=== PATIENT | female | born 1965 | race Caucasian/White ===

== ENCOUNTER 2020-10-14 15:38 | Emergency (ER) | payer OTHER, SELFPAY ==
[2020-10-14] VITALS (11 sets, daily range): BP systolic 150–167; BP diastolic 79–108; PULSE 77–116; RESP 16–27; TEMP 35.9–36.9; O2SAT 99–100
--- NOTE | ~2020-10-14 | US_ITS ---
EXAMINATION: US right upper quadrant EXAM DATE: 10/14/2020 16:56 INDICATION: Right upper quadrant pain. Clinical concern for cholecystitis. TECHNIQUE: Multiple grayscale and Doppler images of the abdomen right upper quadrant were obtained (b y a technologist who performed the scan) and subsequently reviewed. There is no prior study for dominguez guadalupe. FINDINGS: The pancreatic head and body are normal in appearance. The pancreatic tail is not visualized. The l iver has normal echogenicity and contour. There are no focal liver lesions identified. There is no evidence of intrahepatic biliary duct dilation. Portal venous flow was seen in the hepatopedal, nor mal direction and has normal Doppler waveform. No right-sided hydronephrosis. Common bile duct measures 3 mm, which is normal. The gallbladder wall is normal in thickness, with ex pected amount of distention. No sonographic evidence of pericholecystic fluid. There is cholelithia sis. Technologist performing exam reports patient did not demonstrate sonographic Benz's sign. P kayleigh note that this sign is less reliable in patients who have received pain medication. IMPRESSION: Cholelithiasis. Reviewed, dictated and finalized at location A. IMPRESSION: Cholelithiasis.
[2020-10-14 16:11] LABS: Basophils Percent Auto 0.2 % (0.2-1.2); Eosinophils Absolute Auto 0.1 K/mm3 (0-0.3); Eosinophils Percent Auto 0.4 % (0-4.4); Hematocrit 39.2 % (37.0-47.0); Hemoglobin 13.9 g/dL (12.0-15.0); Immature Granulocyte Absolute 0.04 K/mm3 (0.00-0.031); Immature Granulocyte Percent A 0.3 % (0-0.5); Lymphocytes Absolute Auto 1.06 K/mm3 (0.9-3.2); Lymphocytes Percent Auto 8.6 % (18.3-44.2); Mean Corpuscular HGB Conc 35.5 g/dl (32-36); Mean Corpuscular Volume 90.3 fl (80-100); Mean Platelet Volume 9.9 fl (7.4-10.4); Monocytes Absolute Auto 1.4 K/mm3 (0.1-0.6); Monocytes Percent Auto 11.1 % (2.6-8.5); Neutrophils Absolute Auto 9.8 K/mm3 (1.3-6.7); Neutrophils Percent Auto 79.4 % (45.5-73.1); Platelet Count Result 241 k/mm3 (150-375); Red Blood Count 4.34 M/mm3 (4.2-5.4); Red Cell Distribution Width 12.3 % (11.5-14.5); White Blood Count 12.3 K/mm3 (4.5-10.0)
[2020-10-14 16:15] LABS: Add Urine Microscopic? YES; Appearance Urine Clear (Clear); Bilirubin Urine Negative (Negative); Blood Urine 1+ (Negative); Color Urine Yellow (Yellow); Glucose Urine UA Negative (Negative); Ketones Urine Negative (Negative); Leukocyte Esterase Ur Trace LEU/UL (Negative); Mucus Urine Rare /lpf; Nitrate Urine Negative (Negative); Protein Urine 1+ mg/dL (Negative); Specific Grav Ur 1.013 (1.001-1.035); Squamous Epithelial Cell Urine Occasional /hpf (Few); Urobilinogen Urine Negative mg/dL (<2.0); WBC Urine 0-3 /hpf
[2020-10-14 16:24] LABS: Alanine Aminotransferase 159 U/L (4-35); Albumin Level 4.3 g/dL (3.5-5.1); Alkaline Phosphatase 300 U/L (38-126); Anion Gap 10 mmol/L (8-16); Aspartate Amino Transferase 70 U/L (14-36); Bilirubin,Total 1.2 mg/dL (0.2-1.3); Blood Urea Nitrogen 12 mg/dL (7-17); Calcium 9.3 mg/dL (8.4-10.2); Carbon Dioxide 28 mmol/L (22-30); Chloride 94 mmol/L (98-107); Estimated CRCL calculation 77 ml/min; Estimated Glomerular Filt Rate > 60; Glucose 117 mg/dL (65-105); Lipase 58 U/L (23-300); Potassium 3.9 mmol/L (3.4-5.0); Sodium 132 mmol/L (137-145)
--- NOTE | 2020-10-14 17:28 | ED.GENADULT ---
HPI - General Adult General Chief complaint: Abdominal Pain Stated complaint: abd pain Time Seen by Provider: 10/14/20 15:56 History of Present Illness HPI narrative: Patient is a 55-year-old female who presents ER with upper abdominal pain. Symptoms began 4 days ago. The next day patient called her PCP and was placed on Zofran and omeprazole for reflux symptoms. Reflux improved however she persistently had right upper quadrant pain without radiation as aching. Unknown aggravating or alleviating factors. Does not feel associated with eating. PCP arrange an outpatient CT scan yesterday that showed gallbladder wall thickening and concern for cholecystitis. Patient was then placed on ciprofloxacin and Flagyl. Patient had persistent pain today but her last fever was on 10/12/2020. After coming to the ER for further evaluation. She has had no blood work performed. Related Data Home Medications Medication Instructions Recorded Confirmed alprazolam 10/14/20 ciprofloxacin HCl 10/14/20 diltiazem HCl [DILT-XR] PO 10/14/20 escitalopram oxalate mg 10/14/20 fluoxetine mg 10/14/20 metronidazole 10/14/20 spironolactone 10/14/20 Allergies Allergy/AdvReac Type Severity Reaction Status Date / Time Sulfa (Sulfonamide Allergy Mild Rash Verified 10/14/20 16:12 Antibiotics) Review of Systems Review of Systems: All systems reviewed & are unremarkable except as noted in HPI and below Constitutional: Constitutional: Denies chills, Reports fever(s) and Denies weakness ENT: Denies nasal congestion and Denies sore throat Cardiovascular: Cardiovascular: Denies chest pain, Denies rapid heart rate and Denies radiating jaw, neck or arm pain Respiratory: Respiratory: Denies cough and Denies dyspnea Gastrointestinal: Gastrointestinal: Reports abdominal pain, Reports heartburn, Reports nausea and Denies vomiting PMFSH Past Medical History Medical History (Updated 10/14/20 @ 17:37 by Yanick Rodriguez MD) Hypertension Surgical History Surgical History (Updated 10/14/20 @ 17:30 by Yanick Rodriguez MD) H/O section Social History Social History (Updated 10/14/20 @ 17:30 by Yanick Rodriguez MD) Smoking status: Never smoker Exam Narrative: Exam Narrative: GENERAL: Well-appearing, well-nourished, and in no acute distress. HEAD: Normocephalic, atraumatic. CHEST: Clear to auscultation. No respiratory distress. HEART: Regular rate and rhythm. Normal peripheral pulses. ABDOMEN: Soft, tender palpation right upper quadrant moderate, nondistended, normal active bowel sounds. EXTREMITIES: Normal range of motion. No edema. SKIN: Warm, dry, no rash. NEURO: Alert and oriented x3. PSYCH: Normal mood and affect. Course Course Emergency Course: Discussed case with general surgery and with the patient. Patient opts for outpatient management and follow-up next week in clinic. She will remain on her antibiotics and received [place] for pain at home. Discussed return precautions with patient she verbalized understanding. Vital Signs Vital signs: Vital Signs Temperature 96.6 F L 10/14/20 15:41 Pulse Rate 110 H 10/14/20 15:41 Respiratory Rate 16 10/14/20 15:41 Blood Pressure 164/97 H 10/14/20 15:41 Pulse Oximetry 100 10/14/20 15:41 Temperature 98.4 F 10/14/20 16:13 Pulse Rate 99 10/14/20 17:01 Respiratory Rate 20 10/14/20 17:01 Blood Pressure 150/90 H 10/14/20 16:47 Pulse Oximetry 99 10/14/20 17:01 Medical Decision Making Vital Signs Vital Signs: Vital Signs Temperature 96.6 F L 10/14/20 15:41 Pulse Rate 110 H 10/14/20 15:41 Respiratory Rate 16 10/14/20 15:41 Blood Pressure 164/97 H 10/14/20 15:41 Pulse Oximetry 100 10/14/20 15:41 Temperature 98.4 F 10/14/20 16:13 Pulse Rate 99 10/14/20 17:01 Respiratory Rate 20 10/14/20 17:01 Blood Pressure 150/90 H 10/14/20 16:47 Pulse Oximetry 99 10/14/20 17:01 Lab Data Result diagrams: 0
== END 2020-10-14 17:55 | disposition home or self-care (01) ==
PROVIDERS: Emergency Medicine; Emergency Provider Emergency Medicine; PCP Family Medicine
DX: K80.20 Calculus of gallbladder without cholecystitis without obstruction (principal); I10 Essential (primary) hypertension
CPT/HCPCS: 36415; 76705; 80053; 81001; 81025; 83690; 85025; 99284